=== PATIENT | male | born 1945 | race Caucasian/White ===

== ENCOUNTER → 2018-05-17 | Outpatient (CLI) | payer OTHER | LOC: M SLEEP 19:37 | DX: G47.30 Sleep apnea, unspecified (principal) | CPT/HCPCS: 95810 ==

== ENCOUNTER → 2020-10-30 | Outpatient (CLI) | payer OTHER ==
--- NOTE | 2020-11-01 14:21 | SLEEPCENT ---
DATE: 10/30/2020 ORDERED BY: Sera Gonzalez Nocturnal polysomnography was performed for the titration of pressure therapy in this patient with obstructive sleep apnea syndrome based on clinical findings confirmed by home testing, revealing a respiratory event index of 71. For testing, patient was fit with a [employer] DreamWear full-face mask of medium size. There was 4 cm of water pressure applied to the circuit, and the lights were extinguished. There was 7 hours and 16 minutes of data reviewed. There was 283.5 minutes of sleep identified. Sleep latency was short at 18 minutes. REM latency was mildly delayed at 165 minutes. Sleep architecture was somewhat fragmented, but there were two REM cycles noted. Overall sleep efficiency was 65.8%. The electrocardiogram shows a sinus rhythm with premature ventricular contractions (PVCs). Average heart rate 60 beats per minute. EEG showed normal waveforms for wake and sleep. Respiratory events were best palliated with CPAP at a pressure of +8. There was some minor limb activity, and remaining measures of sleep physiology were normal. IMPRESSION: Obstructive sleep apnea syndrome (G47.33). RECOMMENDATION: Nightly use of pressure therapy, 8 cm of water. ,
== END ==
LOC: EDBD 20:00 → M SLEEP 20:00
PROVIDERS: ATTEND Nurse Practitioner Family
DX: G47.33 Obstructive sleep apnea (adult) (pediatric) (principal)